=== PATIENT | female | born 1975 | race Caucasian/White ===

== ENCOUNTER 2019-04-01 14:11 | Inpatient (IN) | payer OTHER, MEDICAID ==
[~2019-04-01] VITALS: Ht 172.7 cm; Wt 99.8 kg
[2019-04-01 14:13] VITALS: BP 121/69
[2019-04-01 14:44] LABS: BILIRUBIN NEGATIVE (NEGATIVE); BLOOD NEGATIVE (NEGATIVE); CLARITY CLEAR (CLEAR); COLOR YELLOW (YELLOW); GLUCOSE NEGATIVE (NEGATIVE); KETONE NEGATIVE (NEGATIVE); LEUKO ESTERASE NEGATIVE (NEGATIVE); NITRITE NEGATIVE (NEGATIVE); PH 6.5 (5.0-9.0); SPECIFIC GRAVITY <= 1.005 (1.005-1.030); UROBILINOGEN 0.2 E.U./dl (0.2-1.0)
[2019-04-01 14:54] LABS: BACTERIA TRACE; EPITHELIAL CELLS 0-2
[2019-04-01 15:10] LABS: BASO % 0.2 % (0.0-1.0); EOS % 0.3 % (1.0-4.0); HEMATOCRIT 41.9 % (37.0-47.0); HEMOGLOBIN 13.1 g/dl (12.0-16.0); LYMPH # 2.9 10*3/uL (1.3-4.4); LYMPH % 24.6 % (27.0-41.0); MEAN CELL VOLUME 89.5 fl (81.0-99.0); MEAN CORPUSCULAR HGB CONC 31.3 g/dl (33.0-37.0); MEAN PLATELET VOLUME 11.8 fl (9.6-12.3); MONO # 0.6 10*3/uL (0.1-1.0); MONO % 5.1 % (3.0-9.0); NEUT # 8.3 10*3/uL (2.3-7.9); NEUT % 69.5 % (47.0-73.0); PLATELET COUNT AUTOMATED 301 10*3/uL (130-400); RED BLOOD COUNT 4.68 10*6/uL (4.10-5.10); RED CELL DISTRI WIDTH 14.4 % (0-14.5); WHITE BLOOD COUNT 11.9 10*3/uL (4.8-10.8)
[2019-04-01 15:13] LABS: ACT PARTIAL THROMBO TIME 29.5 SECONDS (20.0-32.1); INTERNATIONAL NORM RATIO 3.3 (2.0-3.5)
[2019-04-01 15:15] LABS: ALBUMIN 3.7 gm/dl (3.1-4.5); ALKALINE PHOSPHATASE 75 U/L (45-117); BUN 7 mg/dl (7-24); CHLORIDE 112 mmol/L (98-107); CREATININE 0.78 mg/dL (0.55-1.02); LIPASE 74 U/L (73-393); POTASSIUM 3.5 mmol/L (3.5-5.1); SGOT/AST 7 IU/L (3-35); SGPT/ALT 17 U/L (12-78); SODIUM 142 mmol/L (136-145)
--- NOTE | 2019-04-01 17:45 | NUR ---
Time: 1744 A 43 year old FEMALE admitted to under services of JORDYN LOPEZ DO, Pt. arrived via from ER. Chief complaint: EPIGASTRIC PAIN. SUMAN WATTS
--- NOTE | 2019-04-01 18:04 | NUR ---
PHYSICIAN WAS NOTIFIED OF DR. CESAR CONSULT. RESPONSE OF NOTIFICATION WAS OK THANK YOU. SUMAN WATTS
[2019-04-01] MEDS ORDERED: OMEPRAZOLE40 MG PO (18:10)
[2019-04-01] MEDS ORDERED: TRAZODONE100 MG PO (18:11)
[2019-04-01] MEDS ORDERED: TOPAMAX50 MG PO (18:11)
[2019-04-01] MEDS ORDERED: MELATONIN5 M6 PO (18:12)
[2019-04-01] MEDS ORDERED: VRAYLAR4.5 MG PO (18:12)
[2019-04-01] MEDS ORDERED: LIPITOR20 MG PO (18:13)
[2019-04-01] MEDS ORDERED: NEURONTIN300 MG PO (18:13)
[2019-04-01] MEDS ORDERED: B12,B-12,B 12500 MC1 PO (18:13)
[2019-04-01] MEDS ORDERED: MINIPRESS2 M1 PO (18:14)
[2019-04-01] MEDS ORDERED: PROAIR HFA8.5 GM INH (18:14)
[2019-04-01] MEDS ORDERED: COUMADIN5 M2 PO (18:15)
[2019-04-01] MEDS ORDERED: SINGULAIR10 M1 PO (18:15)
[2019-04-01] MEDS ORDERED: BUSPIRONE30 MG PO (18:15)
[2019-04-01] MEDS ORDERED: SYMB160 INH (18:16)
[2019-04-01] MEDS ORDERED: CYCLOBENZAPRINE10 MG PO (18:16)
[2019-04-01 20:00] VITALS: BP 121/62
--- NOTE | 2019-04-01 23:08 | NUR ---
24 HR chart check completed.
[2019-04-02] VITALS: BP 120/64
[2019-04-02 06:53] LABS: BASO % 0.4 % (0.0-1.0); EOS # 0.1 10*3/uL (0.0-0.4); EOS % 0.6 % (1.0-4.0); HEMATOCRIT 40.4 % (37.0-47.0); HEMOGLOBIN 12.6 g/dl (12.0-16.0); LYMPH # 3.6 10*3/uL (1.3-4.4); LYMPH % 34.4 % (27.0-41.0); MEAN CORPUSCULAR HGB 28.1 pg (27.0-31.0); MEAN CORPUSCULAR HGB CONC 31.2 g/dl (33.0-37.0); MEAN PLATELET VOLUME 11.8 fl (9.6-12.3); MONO # 0.6 10*3/uL (0.1-1.0); MONO % 5.9 % (3.0-9.0); NEUT # 6.1 10*3/uL (2.3-7.9); NEUT % 58.2 % (47.0-73.0); PLATELET COUNT AUTOMATED 281 10*3/uL (130-400); RED BLOOD COUNT 4.49 10*6/uL (4.10-5.10); RED CELL DISTRI WIDTH 14.5 % (0-14.5); WHITE BLOOD COUNT 10.5 10*3/uL (4.8-10.8)
--- NOTE | 2019-04-02 07:25 | NUR ---
DR CESAR HERE AND SAID PATIENT HAS A HX OF BARRETTS ESOPHAGUS & NEED TO CONSULT GI NOT SUGERY.
[2019-04-02 07:29] LABS: CHLORIDE 114 mmol/L (98-107); POTASSIUM 3.7 mmol/L (3.5-5.1); SODIUM 143 mmol/L (136-145)
--- NOTE | 2019-04-02 07:29 | NUR ---
Shift chart check completed.
[2019-04-02 07:31] LABS: INTERNATIONAL NORM RATIO 3.2 (2.0-3.5)
[2019-04-02 07:49] LABS: ALBUMIN 3.3 gm/dl (3.1-4.5); ALKALINE PHOSPHATASE 67 U/L (45-117); BUN 6 mg/dl (7-24); CHOLESTEROL 122 mg/dL (<200); CREATININE 0.69 mg/dL (0.55-1.02); FREE T4 0.95 ng/dl (0.76-1.46); HDL CHOLESTEROL 30 mg/dl (40-60); LDL CHOLESTEROL 56 mg/dL (9-159); PHOSPHOROUS 2.6 mg/dL (2.5-4.9); SGOT/AST 7 IU/L (3-35); SGPT/ALT 19 U/L (12-78); THYROID STIM HORMONE (HS) 0.483 uIU/ml (0.358-4.75); TOTAL PROTEIN 6.2 gm/dL (6.4-8.2); TRIGLYCERIDES 178 mg/dl (<150); VLDL CHOLESTEROL 36 mg/dL (6-40)
[2019-04-02 08:00] VITALS: BP 108/60
--- NOTE | 2019-04-02 08:18 | NUR ---
DR BAIRD CALLED ABOUT WHAT DR CESAR SAID
[2019-04-02 08:22] LABS: VITAMIN D, 25-HYDROXY 39.8 ng/mL (30-100)
--- NOTE | 2019-04-02 09:03 | NUR ---
DR DHILLON CALLED ABOUT CONSULT
--- NOTE | 2019-04-02 10:16 | NUR ---
DR SLAUGHTER ROUNDED & SPOKE WITH THE PATIENT
[2019-04-02 12:00] VITALS: BP 117/61
--- NOTE | 2019-04-02 12:02 | NUR ---
Manager Wound in to talk to patient. Patient states lives at HOME with SISTER. There are NO steps in the home. Physician: GEOFF Pharmacy: [facility] Home health services: NONE Patient's level of ADLs: INDEPENDENT Patient has working utilities: YES DME: NONE Follow-up physician's appointment after d/c: WILL BE MADE BY HOSPITALIST NURSE DIRECTOR ON DISCHARGE Does patient want to access PORTAL?: NO Discharge plan PT LIVES AT HOME WITH HER SISTER AND IS INDEPENDENT IN HER CARE. STATES SHE WILL RETURN HOME WITH SISTER ON DISCHARGE. DENIES SHE WILL HAVE ANY NEEDS AT HOME ON DISCHARGE. WILL HAVE A RIDE HOME. WILL CONTINUE TO FOLLOW.. REBECCA GARCIA
--- NOTE | 2019-04-02 15:41 | NUR ---
Nutritional Support Services: Pt was triggered for loss of appetite >3 days. Her current diet order is clear liquids. No intervention needed until diet advances.
[2019-04-02 16:00] VITALS: BP 122/72
--- NOTE | 2019-04-02 17:49 | NUR ---
DR DHILLON LEFT HIS PHONE AT THE OFFICE - THEY ARE TAKING IT TO HIM AT [facility] & WILL REMIND HIM OF CONSULT
[2019-04-02 20:00] VITALS: BP 111/61
[2019-04-03] VITALS: BP 90/58
--- NOTE | 2019-04-03 03:24 | NUR ---
24 HR chart check completed.
[2019-04-03 07:10] LABS: BASO # 0.1 10*3/uL (0.0-0.1); BASO % 0.6 % (0.0-1.0); EOS # 0.1 10*3/uL (0.0-0.4); EOS % 0.9 % (1.0-4.0); HEMOGLOBIN 12.8 g/dl (12.0-16.0); LYMPH # 3.2 10*3/uL (1.3-4.4); LYMPH % 32.5 % (27.0-41.0); MEAN CELL VOLUME 89.5 fl (81.0-99.0); MEAN CORPUSCULAR HGB 27.9 pg (27.0-31.0); MEAN CORPUSCULAR HGB CONC 31.2 g/dl (33.0-37.0); MEAN PLATELET VOLUME 11.8 fl (9.6-12.3); MONO # 0.7 10*3/uL (0.1-1.0); MONO % 6.8 % (3.0-9.0); NEUT # 5.8 10*3/uL (2.3-7.9); NEUT % 58.8 % (47.0-73.0); PLATELET COUNT AUTOMATED 278 10*3/uL (130-400); RED BLOOD COUNT 4.58 10*6/uL (4.10-5.10); RED CELL DISTRI WIDTH 14.4 % (0-14.5); WHITE BLOOD COUNT 9.8 10*3/uL (4.8-10.8)
[2019-04-03 07:20] LABS: BUN 3 mg/dl (7-24); CHLORIDE 115 mmol/L (98-107); POTASSIUM 3.6 mmol/L (3.5-5.1); SODIUM 143 mmol/L (136-145)
[2019-04-03 07:22] LABS: CREATININE 0.73 mg/dL (0.55-1.02)
[2019-04-03 07:44] LABS: ACT PARTIAL THROMBO TIME 28.2 SECONDS (20.0-32.1); INTERNATIONAL NORM RATIO 2.1 (2.0-3.5)
[2019-04-03 08:00] VITALS: BP 107/53
[2019-04-03 12:00] VITALS: BP 123/68
--- NOTE | 2019-04-03 12:53 | NUR ---
PT WILL RETURN HOME ON DISCHARGE WITH NO NEEDS. WILL CONTINUE TO FOLLOW.
[2019-04-03] MEDS ORDERED: XARE20MG PO (14:43)
[2019-04-03 16:00] VITALS: BP 131/69
--- NOTE | 2019-04-03 16:54 | NUR ---
Discharge instructions reviewed with patient/family. Patient receptive and verbalizes understanding. Follow-up care arranged. Written instructions given to patient/family. DERRICK VILA
== END 2019-04-03 16:54 | disposition home or self-care (01) | DRG 392 ==
LOC: ED 14:11 → 5E 16:02 → EDHOLD 16:02 → 5E 16:50
PROVIDERS: Emergency Medicine; Internal Medicine; Registered Nurse; ADMIT Internal Medicine
DX: R10.13 Epigastric pain (principal); D68.59 Other primary thrombophilia; E44.0 Moderate protein-calorie malnutrition; K22.719 Barrett's esophagus with dysplasia, unspecified; I34.1 Nonrheumatic mitral (valve) prolapse; K21.9 Gastro-esophageal reflux disease without esophagitis; F31.9 Bipolar disorder, unspecified; R13.10 Dysphagia, unspecified; E78.00 Pure hypercholesterolemia, unspecified; Z87.891 Personal history of nicotine dependence; Z79.01 Long term (current) use of anticoagulants; Z86.711 Personal history of pulmonary embolism; Z86.718 Personal history of other venous thrombosis and embolism; Z90.49 Acquired absence of other specified parts of digestive tract; Z98.51 Tubal ligation status; Z80.8 Family history of malignant neoplasm of other organs or systems; Z82.49 Family history of ischemic heart disease and other diseases of the circulatory system; Z88.1 Allergy status to other antibiotic agents; Z71.6 Tobacco abuse counseling; Z79.899 Other long term (current) drug therapy; Z68.33 Body mass index [BMI] 33.0-33.9, adult

== ENCOUNTER 2019-05-12 18:01 | Emergency (ER) | payer OTHER, MEDICAID ==
[~2019-05-12] VITALS: Ht 172.7 cm; Wt 98.4 kg
--- NOTE | ~2019-05-12 | EKG ---
[place], [place] ELECTROCARDIOGRAM REPORT NAME: THANH SILVER UNIT #: [id number] ROOM: DOCTOR: EPIPHANY DRAFT REPORT BIRTHDATE: [birth year] [facility] Test Date: 2019-05-12 Test Time: 19:45:19 Pat Name: THANH SILVER Department: Room: Gender: F Plant Equipment Engineer: SS RESP : 1975 Requested By: OLIVIA ARREGUIN Order Number: [id number] Reading MD: Kana Adams MD Measurements Intervals [place] Rate: 52 P: 65 TN: 175 QRS: -24 QRSD: 99 T: 40 QT: 503 QTc: 468 Interpretive Statements Sinus rhythm Probable left atrial enlargement Borderline left axis deviation RSR' in V1 or V2, right VCD or RVH Baseline wander in lead(s) I Electronically Signed On 05-14-2019 12:46:50 PDT by Kana Adams MD CM:EKGRPT:ELECTROCARDIOGRAM REPORT [id number] OLIVIA ARREGUIN EPIPHANY DRAFT REPORT OLIVIA ARREGUIN
[~2019-05-12 18:01] MED LIST: B12,B-12,B 12500 MC1 PO; BUSPIRONE30 MG PO; COUMADIN5 M2 PO; CYCLOBENZAPRINE10 MG PO; LIPITOR20 MG PO; MELATONIN5 M6 PO; MINIPRESS2 M1 PO; NEURONTIN300 MG PO; OMEPRAZOLE40 MG PO; PROAIR HFA8.5 GM INH; SINGULAIR10 M1 PO; SYMB160 INH; TOPAMAX50 MG PO; TRAZODONE100 MG PO; VRAYLAR4.5 MG PO; XARE20MG PO
[2019-05-12 19:29] LABS: BASO # 0.1 10*3/uL (0.0-0.1); BASO % 0.5 % (0.0-1.0); EOS # 0.2 10*3/uL (0.0-0.4); EOS % 1.5 % (1.0-4.0); HEMATOCRIT 42.5 % (37.0-47.0); HEMOGLOBIN 13.2 g/dl (12.0-16.0); LYMPH # 3.6 10*3/uL (1.3-4.4); LYMPH % 31.1 % (27.0-41.0); MEAN CELL VOLUME 89.9 fl (81.0-99.0); MEAN CORPUSCULAR HGB 27.9 pg (27.0-31.0); MEAN CORPUSCULAR HGB CONC 31.1 g/dl (33.0-37.0); MEAN PLATELET VOLUME 11.6 fl (9.6-12.3); MONO # 0.7 10*3/uL (0.1-1.0); MONO % 6.2 % (3.0-9.0); NEUT # 6.9 10*3/uL (2.3-7.9); NEUT % 60.4 % (47.0-73.0); PLATELET COUNT AUTOMATED 288 10*3/uL (130-400); RED BLOOD COUNT 4.73 10*6/uL (4.10-5.10); RED CELL DISTRI WIDTH 14.4 % (0-14.5); WHITE BLOOD COUNT 11.5 10*3/uL (4.8-10.8)
[2019-05-12 19:56] LABS: BUN 4 mg/dl (7-24); CHLORIDE 113 mmol/L (98-107); CREATININE 0.77 mg/dL (0.55-1.02); LIPASE 88 U/L (73-393); POTASSIUM 3.3 mmol/L (3.5-5.1); SODIUM 142 mmol/L (136-145)
== END 2019-05-12 21:00 | disposition home or self-care (01) ==
LOC: ED 18:01
PROVIDERS: Nurse Practitioner Family
DX: K44.9 Diaphragmatic hernia without obstruction or gangrene (principal); E78.00 Pure hypercholesterolemia, unspecified; K21.9 Gastro-esophageal reflux disease without esophagitis; J45.909 Unspecified asthma, uncomplicated; F17.200 Nicotine dependence, unspecified, uncomplicated; Z88.1 Allergy status to other antibiotic agents; Z79.899 Other long term (current) drug therapy; Z86.718 Personal history of other venous thrombosis and embolism

== ENCOUNTER 2019-07-07 11:34 | Emergency (ER) | payer OTHER, MEDICAID ==
[~2019-07-07] VITALS: Ht 175.2 cm; Wt 95.3 kg
[2019-07-07 12:15] LABS: ACT PARTIAL THROMBO TIME 27.7 SECONDS (20.0-32.1); INTERNATIONAL NORM RATIO 1.1 (2.0-3.5)
[2019-07-07 12:16] LABS: BASO # 0.1 10*3/uL (0.0-0.1); BASO % 0.6 % (0.0-1.0); EOS # 0.3 10*3/uL (0.0-0.4); HEMATOCRIT 38.1 % (37.0-47.0); LYMPH # 1.9 10*3/uL (1.3-4.4); LYMPH % 21.9 % (27.0-41.0); MEAN CELL VOLUME 90.3 fl (81.0-99.0); MEAN CORPUSCULAR HGB 28.4 pg (27.0-31.0); MEAN CORPUSCULAR HGB CONC 31.5 g/dl (33.0-37.0); MONO # 0.6 10*3/uL (0.1-1.0); NEUT # 5.9 10*3/uL (2.3-7.9); PLATELET COUNT AUTOMATED 281 10*3/uL (130-400); RED BLOOD COUNT 4.22 10*6/uL (4.10-5.10); WHITE BLOOD COUNT 8.8 10*3/uL (4.8-10.8)
[2019-07-07 12:27] LABS: ALBUMIN 3.1 gm/dl (3.1-4.5); ALKALINE PHOSPHATASE 75 U/L (45-117); BUN 5 mg/dl (7-24); CHLORIDE 113 mmol/L (98-107); CREATININE 0.71 mg/dL (0.55-1.02); POTASSIUM 4.1 mmol/L (3.5-5.1); SGOT/AST 13 IU/L (3-35); SGPT/ALT 18 U/L (12-78); SODIUM 141 mmol/L (136-145); TOTAL PROTEIN 6.1 gm/dL (6.4-8.2)
[2019-07-07 12:36] LABS: TROPONIN I < 0.015 ng/ml (<0.045)
[2019-07-07 12:43] LABS: BILIRUBIN NEGATIVE (NEGATIVE); BLOOD NEGATIVE (NEGATIVE); CLARITY CLEAR (CLEAR); COLOR YELLOW (YELLOW); GLUCOSE NEGATIVE (NEGATIVE); KETONE NEGATIVE (NEGATIVE); LEUKO ESTERASE NEGATIVE (NEGATIVE); NITRITE NEGATIVE (NEGATIVE); SPECIFIC GRAVITY <= 1.005 (1.005-1.030); UROBILINOGEN 0.2 E.U./dl (0.2-1.0)
[2019-07-07 13:07] LABS: EPITHELIAL CELLS 0-2; WBC 0-2 wbc/hpf (0-5)
== END 2019-07-07 14:58 | disposition home or self-care (01) ==
LOC: ED 11:34
PROVIDERS: Emergency Medicine
DX: G89.18 Other acute postprocedural pain (principal); M54.6 Pain in thoracic spine; R10.13 Epigastric pain; R10.12 Left upper quadrant pain; R06.02 Shortness of breath; K21.9 Gastro-esophageal reflux disease without esophagitis; J45.909 Unspecified asthma, uncomplicated; F17.200 Nicotine dependence, unspecified, uncomplicated; Z88.1 Allergy status to other antibiotic agents; Z79.899 Other long term (current) drug therapy

== ENCOUNTER 2019-12-29 15:06 | Emergency (ER) | payer OTHER, MEDICAID ==
[~2019-12-29] VITALS: Ht 172.7 cm; Wt 95.3 kg
[2019-12-29] MEDS ORDERED: IMITREX50 MG PO (16:57)
== END 2019-12-29 17:15 | disposition home or self-care (01) ==
LOC: ED 15:06
DX: G43.909 Migraine, unspecified, not intractable, without status migrainosus (principal); J45.909 Unspecified asthma, uncomplicated; K21.9 Gastro-esophageal reflux disease without esophagitis; Z88.8 Allergy status to other drugs, medicaments and biological substances; Z79.899 Other long term (current) drug therapy; Z90.49 Acquired absence of other specified parts of digestive tract

== ENCOUNTER 2020-01-24 12:43 | Emergency (ER) | payer OTHER, MEDICAID ==
[~2020-01-24] VITALS: Ht 172.7 cm; Wt 97.5 kg
[~2020-01-24 12:43] MED LIST changes: +IMITREX50 MG PO
[2020-01-24 13:32] LABS: BASO # 0.1 10*3/uL (0.0-0.1); BASO % 0.5 % (0.0-1.0); EOS # 0.3 10*3/uL (0.0-0.4); EOS % 2.4 % (1.0-4.0); HEMATOCRIT 42.4 % (37.0-47.0); LYMPH # 1.7 10*3/uL (1.3-4.4); MEAN CORPUSCULAR HGB 28.4 pg (27.0-31.0); MEAN CORPUSCULAR HGB CONC 32.3 g/dl (33.0-37.0); MEAN PLATELET VOLUME 10.6 fl (9.6-12.3); MONO # 0.6 10*3/uL (0.1-1.0); MONO % 4.6 % (3.0-9.0); NEUT # 10.6 10*3/uL (2.3-7.9); NEUT % 79.1 % (47.0-73.0); PLATELET COUNT AUTOMATED 336 10*3/uL (130-400); RED BLOOD COUNT 4.82 10*6/uL (4.10-5.10); WHITE BLOOD COUNT 13.3 10*3/uL (4.8-10.8)
[2020-01-24 13:43] LABS: ACT PARTIAL THROMBO TIME 26.5 SECONDS (20.0-32.1)
[2020-01-24 13:48] LABS: ALBUMIN 3.6 gm/dl (3.1-4.5); ALKALINE PHOSPHATASE 102 U/L (45-117); BUN 7 mg/dl (7-24); CHLORIDE 108 mmol/L (98-107); CREATININE 0.81 mg/dL (0.55-1.02); POTASSIUM 3.9 mmol/L (3.5-5.1); SGOT/AST 19 IU/L (3-35); SGPT/ALT 33 U/L (12-78); SODIUM 136 mmol/L (136-145)
== END 2020-01-24 14:01 | disposition home or self-care (01) ==
LOC: ED 12:43
PROVIDERS: Emergency Medicine
DX: K62.5 Hemorrhage of anus and rectum (principal); R10.32 Left lower quadrant pain; E78.00 Pure hypercholesterolemia, unspecified; G43.909 Migraine, unspecified, not intractable, without status migrainosus; J45.909 Unspecified asthma, uncomplicated; Z72.0 Tobacco use; Z79.899 Other long term (current) drug therapy; Z88.1 Allergy status to other antibiotic agents

== ENCOUNTER 2020-03-01 13:50 | Emergency (ER) | payer OTHER, MEDICAID ==
[~2020-03-01] VITALS: Ht 172.7 cm; Wt 96.2 kg
== END 2020-03-01 16:37 | disposition home or self-care (01) ==
LOC: ED 13:50
DX: S86.911A Strain of unspecified muscle(s) and tendon(s) at lower leg level, right leg, initial encounter (principal); G43.909 Migraine, unspecified, not intractable, without status migrainosus; F31.9 Bipolar disorder, unspecified; E78.00 Pure hypercholesterolemia, unspecified; J45.909 Unspecified asthma, uncomplicated; K21.9 Gastro-esophageal reflux disease without esophagitis; F17.200 Nicotine dependence, unspecified, uncomplicated; W10.9XXA Fall (on) (from) unspecified stairs and steps, initial encounter; Y93.89 Activity, other specified; Y92.89 Other specified places as the place of occurrence of the external cause; Y99.8 Other external cause status

== ENCOUNTER 2020-03-10 13:42 | Inpatient (IN) | payer OTHER, MEDICAID ==
[~2020-03-10] VITALS: Ht 172.7 cm; Wt 96.8 kg
[2020-03-10 13:48] VITALS: BP 132/69
[2020-03-10 14:42] LABS: BASO # 0.1 10*3/uL (0.0-0.1); BASO % 0.4 % (0.0-1.0); EOS # 0.2 10*3/uL (0.0-0.4); EOS % 1.3 % (1.0-4.0); LYMPH # 1.8 10*3/uL (1.3-4.4); LYMPH % 12.2 % (27.0-41.0); MEAN CELL VOLUME 88.5 fl (81.0-99.0); MEAN CORPUSCULAR HGB 28.5 pg (27.0-31.0); MEAN CORPUSCULAR HGB CONC 32.3 g/dl (33.0-37.0); MEAN PLATELET VOLUME 10.3 fl (9.6-12.3); MONO % 6.9 % (3.0-9.0); NEUT # 11.5 10*3/uL (2.3-7.9); NEUT % 78.8 % (47.0-73.0); PLATELET COUNT AUTOMATED 285 10*3/uL (130-400); RED BLOOD COUNT 4.52 10*6/uL (4.10-5.10); RED CELL DISTRI WIDTH 13.5 % (0-14.5); WHITE BLOOD COUNT 14.6 10*3/uL (4.8-10.8)
[2020-03-10 14:54] LABS: ACT PARTIAL THROMBO TIME 28.4 SECONDS (20.0-32.1); INTERNATIONAL NORM RATIO 1.1 (2.0-3.5)
[2020-03-10 14:57] LABS: ALBUMIN 3.2 gm/dl (3.1-4.5); ALKALINE PHOSPHATASE 96 U/L (45-117); BUN 7 mg/dl (7-24); CHLORIDE 107 mmol/L (98-107); CREATININE 0.69 mg/dL (0.55-1.02); LIPASE 53 U/L (73-393); POTASSIUM 3.8 mmol/L (3.5-5.1); SGOT/AST 9 IU/L (3-35); SGPT/ALT 24 U/L (12-78); SODIUM 136 mmol/L (136-145); TOTAL PROTEIN 6.8 gm/dL (6.4-8.2)
[2020-03-10 14:58] LABS: TROPONIN I < 0.015 ng/ml (<0.045)
[2020-03-10 16:00] VITALS: BP 109/43
[2020-03-10 19:50] VITALS: BP 109/43
--- NOTE | 2020-03-10 19:50 | NUR ---
A 44, admitted to , under the services of JORDYN Lopez DO with a diagnosis of GI BLEED, ACUTE COLITIS. Chief complaint is N/V. Patient arrived via ambulatory from ER. Monitor applied. Initial assessment completed. Vital signs taken and recorded. JORDYN LOPEZ DO notified of admission to the unit. Orders received. See assessment for past medical history, medications and allergies. Patient and/or family oriented to unit. [facility] visitation policy reviewed. Clothing/patient valuable form completed. ISIDRA FINNEY
[2020-03-10 20:00] VITALS: BP 100/41
--- NOTE | 2020-03-10 20:24 | NUR ---
PT C/O LUQ SHARP STABBING CONSTANT ABD PAIN AND NAUSEA. MEDICATED W/IVP MORPHINE AND IVP ZOFRAN.
--- NOTE | 2020-03-10 20:49 | NUR ---
DR. FISHMAN NOTIFIED OF NEW CONSULT FOR GI BLEED.
--- NOTE | 2020-03-10 21:00 | NUR ---
PT STATES MORPHINE HAS HELPED DECREASE THE PAIN BY HALF AND ZOFRAN ALLEVIATED HER NAUSEA.
[2020-03-10] MEDS ORDERED: SEROQUEL XR300 MG PO (21:25)
[2020-03-10] MEDS ORDERED: TRILEPTAL600 MG PO (21:25)
[2020-03-10] MEDS ORDERED: VISTARIL50 MG PO (21:26)
[2020-03-10] MEDS ORDERED: REQUIP2 MG PO (21:27)
--- NOTE | 2020-03-10 21:28 | NUR ---
RESIDENT NOTIFIED OF MED REC UTD.
[2020-03-11] VITALS: BP 101/49
--- NOTE | 2020-03-11 00:44 | NUR ---
PT C/O LUQ ABD PAIN 01/28. MEDICATED W/MORPHINE IVP.
[2020-03-11 06:42] LABS: BASO % 0.4 % (0.0-1.0); EOS # 0.2 10*3/uL (0.0-0.4); EOS % 2.1 % (1.0-4.0); HEMATOCRIT 36.9 % (37.0-47.0); LYMPH # 2.4 10*3/uL (1.3-4.4); LYMPH % 21.7 % (27.0-41.0); MEAN CELL VOLUME 90.2 fl (81.0-99.0); MEAN CORPUSCULAR HGB 28.4 pg (27.0-31.0); MEAN CORPUSCULAR HGB CONC 31.4 g/dl (33.0-37.0); MEAN PLATELET VOLUME 10.8 fl (9.6-12.3); MONO # 0.8 10*3/uL (0.1-1.0); MONO % 6.9 % (3.0-9.0); NEUT # 7.5 10*3/uL (2.3-7.9); NEUT % 68.4 % (47.0-73.0); PLATELET COUNT AUTOMATED 252 10*3/uL (130-400); RED BLOOD COUNT 4.09 10*6/uL (4.10-5.10); RED CELL DISTRI WIDTH 13.5 % (0-14.5)
[2020-03-11 06:52] LABS: BUN 5 mg/dl (7-24); CHLORIDE 107 mmol/L (98-107); CREATININE 0.62 mg/dL (0.55-1.02); POTASSIUM 3.4 mmol/L (3.5-5.1); SODIUM 138 mmol/L (136-145)
--- NOTE | 2020-03-11 07:00 | NUR ---
ARRIVED ON SHIFT, RECEIVED REPORT FROM OFFGOING NURSE, ASSUMED CARE OF PATIENT.
--- NOTE | 2020-03-11 07:30 | NUR ---
INTRODUCED SELF TO PATIENT, BED IN LOW POSITION, WHEEL LOCKS ENGAGED, SIDE RAILS UP X 2 FOR TURNING AND REPOSITIONING, CALL LIGHT WITHIN REACH, NO NEEDS VOICED AT THIS TIME, WHITE BOARD UPDATED.
[2020-03-11 08:00] VITALS: BP 118/82
--- NOTE | 2020-03-11 08:06 | NUR ---
PATIENT C/O OF LEFT LOWER QUADRANT, ABDOMINAL PAIN RATES PAIN 5/10, DESCRIBES ACHING, CONSTANT, SHARP PAIN, MEDICATED WITH NORCO ORDERED PRN, WHITE BOARD UPDATED.
--- NOTE | 2020-03-11 09:05 | NUR ---
NORCO EFFECTIVE, EVIDENCED BY PATIENT RESTING QUIETLY WITH EYES CLOSED, NO DISTRESS NOTED.
--- NOTE | 2020-03-11 10:30 | NUR ---
Information Lead in to talk to patient. Patient states lives at home with family. There are no steps in the home. Physician: mable carey [facility]acy: [facility] Home health services: none Patient's level of ADLs: INDEPENDENT Patient has working utilities: all working DME: none Follow-up physician's appointment after d/c: will be made by hospitalist nurse director upon discharge Does patient want to access PORTAL?: no Discharge plan discussed with patient, she states she lives at home with family is independent in adls and ambulation, she states she will return home when discharged and denies any home needs, case management will follow. COLLEEN GARZON
[2020-03-11 12:00] VITALS: BP 118/80
--- NOTE | 2020-03-11 14:48 | NUR ---
Nutritional Support Services Note: Dx of acute colitis, GI bleed, sepsis, hx of anxiety and depression. Appetite is poor for meals, currently on a full liquid diet. Ht.5'8 Wt.213#. Will continue to follow for advancement of po intake. Aiyana Cox Rdn Ld
--- NOTE | 2020-03-11 15:00 | NUR ---
PATIENT C/O ABD PAIN AND HEAD ACHE MEDICATED WITH VINNY GONZALEZ BOARD UPDATED.
[2020-03-11 16:00] VITALS: BP 100/54
--- NOTE | 2020-03-11 18:44 | NUR ---
Shift chart check completed.
[2020-03-11 20:00] VITALS: BP 112/53
--- NOTE | 2020-03-11 20:03 | NUR ---
PT WANTING TO GO HOME. DR. CORADO NOTIFIED OF PT'S REQUEST. WILL REVIEW CHART AND CALL BACK.
--- NOTE | 2020-03-11 20:32 | NUR ---
DR. DAVILA ON FLOOR AND SPOKE W/PT RE BEING D/C'D FROILAN. PT AGREED TO STAY THE NIGHT.
[2020-03-11] MEDS ORDERED: VENLAFAXINE HY150 M2 PO (20:34)
--- NOTE | 2020-03-11 20:37 | NUR ---
DR. BURNS NOTIFIED PT STATES SHE TAKES EFFEXOR 150MG PO DAILY AND SHE HASN'T HAD IT FOR [address] BEAR CONTINUE.
--- NOTE | 2020-03-11 23:26 | NUR ---
PT STATES HER ANXIETY IS GONE BUT SHE CONTINUES TO HAVE PAIN IN HER LUQ ABD AND IT IS WORSE. MEDICATED W/MORPHINE IVP. CALL LIGHT IN REACH.
[2020-03-11 23:50] VITALS: BP 100/41
--- NOTE | 2020-03-12 00:26 | NUR ---
PT RESTING QUIETLY IN BED. DENIES ANY FURTHER C/O PAIN. EXTRA PILLOWS AND BLANKETS AND GINGERALE GIVEN TO PT PER REQUEST. CALL LIGHT IN REACH.
--- NOTE | 2020-03-12 02:00 | NUR ---
PT RESTING QUIETLY IN BED. NO S/S OF DISTRESS NOTED. CALL LIGHT IN REACH.
[2020-03-12 06:08] LABS: BASO # 0.1 10*3/uL (0.0-0.1); BASO % 0.5 % (0.0-1.0); EOS # 0.3 10*3/uL (0.0-0.4); EOS % 2.4 % (1.0-4.0); HEMATOCRIT 38.9 % (37.0-47.0); LYMPH # 1.8 10*3/uL (1.3-4.4); LYMPH % 17.5 % (27.0-41.0); MEAN CELL VOLUME 90.3 fl (81.0-99.0); MEAN CORPUSCULAR HGB 28.8 pg (27.0-31.0); MEAN CORPUSCULAR HGB CONC 31.9 g/dl (33.0-37.0); MONO # 0.7 10*3/uL (0.1-1.0); MONO % 6.3 % (3.0-9.0); NEUT # 7.6 10*3/uL (2.3-7.9); NEUT % 72.9 % (47.0-73.0); PLATELET COUNT AUTOMATED 253 10*3/uL (130-400); RED BLOOD COUNT 4.31 10*6/uL (4.10-5.10); RED CELL DISTRI WIDTH 13.5 % (0-14.5); WHITE BLOOD COUNT 10.4 10*3/uL (4.8-10.8)
[2020-03-12 06:22] LABS: BUN 2 mg/dl (7-24); CHLORIDE 110 mmol/L (98-107); CREATININE 0.58 mg/dL (0.55-1.02); POTASSIUM 3.7 mmol/L (3.5-5.1); SODIUM 140 mmol/L (136-145)
--- NOTE | 2020-03-12 07:00 | NUR ---
ARRIVED ON SHIFT, REPORT RECEIVED FROM OFFGOING NURSE, ASSUMED CARE OF PATIENT.
--- NOTE | 2020-03-12 07:53 | NUR ---
Shift chart check completed.
[2020-03-12 08:00] VITALS: BP 90/58; BP 97/42
--- NOTE | 2020-03-12 08:13 | NUR ---
INTRODUCED SELF TO PATIENT, BED IN LOW POSITION, WHEEL LOCKS ENGAGED, SIDE RAILS UP X 2 FOR TURNING AND REPOSITIONING, CALL LIGHT WITHIN REACH NO NEEDS VOICED AT THIS TIME.
--- NOTE | 2020-03-12 08:19 | NUR ---
DR GRIFFITHS NOTIFIED OF LOW BP, ADVISED TO RECHECK IN 1-1/2 HOURS AND LET HIM KNOW
[2020-03-12 09:30] VITALS: BP 90/62
--- NOTE | 2020-03-12 09:57 | NUR ---
NOTIFIED DR. KWAN OF BP 90/62.
[2020-03-12] MEDS ORDERED: FLAGYL500 MG PO (11:14)
[2020-03-12] MEDS ORDERED: CIPRO500 MG PO (11:14)
[2020-03-12] MEDS ORDERED: DELZICOL400 M2 PO (11:14)
[2020-03-12 12:00] VITALS: BP 97/50
--- NOTE | 2020-03-12 12:19 | NUR ---
Discharge instructions reviewed with patient/family. Patient receptive and verbalizes understanding. Follow-up care arranged. Written instructions given to patient/family, Non-Monitored, IV removed, refused w/c for discharge. ANABELLE KATZ
--- NOTE | 2020-03-16 11:33 | NUR ---
Cherise from [facility] called and stated this is the 2nd request for clinicals. Please fax clinicals to [phone]. Clinicals faxed.
== END 2020-03-12 12:35 | disposition home or self-care (01) | DRG 872 ==
LOC: ED 13:42 → 4E 16:05 → EDHOLD 16:05 → 4E 19:03
PROVIDERS: Emergency Medicine; Internal Medicine; ADMIT Internal Medicine
DX: A41.9 Sepsis, unspecified organism (principal); K92.2 Gastrointestinal hemorrhage, unspecified; F31.81 Bipolar II disorder; K52.9 Noninfective gastroenteritis and colitis, unspecified; F17.210 Nicotine dependence, cigarettes, uncomplicated; F41.9 Anxiety disorder, unspecified; J45.909 Unspecified asthma, uncomplicated; E78.00 Pure hypercholesterolemia, unspecified; F43.10 Post-traumatic stress disorder, unspecified; G43.909 Migraine, unspecified, not intractable, without status migrainosus; Z98.51 Tubal ligation status; Z82.49 Family history of ischemic heart disease and other diseases of the circulatory system; Z88.1 Allergy status to other antibiotic agents; Z91.041 Radiographic dye allergy status; Z91.048 Other nonmedicinal substance allergy status; Z86.711 Personal history of pulmonary embolism; Z79.01 Long term (current) use of anticoagulants

== ENCOUNTER 2020-04-06 14:15 | Emergency (ER) | payer OTHER, MEDICAID ==
[~2020-04-06] VITALS: Ht 172.7 cm; Wt 90.7 kg
[~2020-04-06 14:15] MED LIST changes: +CIPRO500 MG PO; +DELZICOL400 M2 PO; +FLAGYL500 MG PO; +REQUIP2 MG PO; +SEROQUEL XR300 MG PO; +TRILEPTAL600 MG PO; +VENLAFAXINE HY150 M2 PO; +VISTARIL50 MG PO
[2020-04-06 15:01] LABS: BASO # 0.1 10*3/uL (0.0-0.1); BASO % 0.6 % (0.0-1.0); EOS # 0.2 10*3/uL (0.0-0.4); EOS % 2.9 % (1.0-4.0); HEMATOCRIT 41.9 % (37.0-47.0); LYMPH # 2.1 10*3/uL (1.3-4.4); LYMPH % 25.2 % (27.0-41.0); MEAN CELL VOLUME 89.1 fl (81.0-99.0); MEAN CORPUSCULAR HGB 28.5 pg (27.0-31.0); MEAN PLATELET VOLUME 10.4 fl (9.6-12.3); MONO # 0.6 10*3/uL (0.1-1.0); MONO % 7.6 % (3.0-9.0); NEUT # 5.3 10*3/uL (2.3-7.9); NEUT % 63.5 % (47.0-73.0); PLATELET COUNT AUTOMATED 337 10*3/uL (130-400); RED CELL DISTRI WIDTH 13.3 % (0-14.5); WHITE BLOOD COUNT 8.3 10*3/uL (4.8-10.8)
[2020-04-06 15:20] LABS: ALBUMIN 3.5 gm/dl (3.1-4.5); ALKALINE PHOSPHATASE 78 U/L (45-117); BUN 5 mg/dl (7-24); CHLORIDE 107 mmol/L (98-107); CREATININE 0.63 mg/dL (0.55-1.02); POTASSIUM 3.8 mmol/L (3.5-5.1); SGOT/AST 21 IU/L (3-35); SGPT/ALT 39 U/L (12-78); SODIUM 139 mmol/L (136-145); TOTAL PROTEIN 6.6 gm/dL (6.4-8.2)
[2020-04-06 15:32] LABS: ACETAMINOPHEN (TYLENOL) < 5.0 ug/ml (10-30); ETHYL ALCOHOL < 3.0 mg/dl (<3)
[2020-04-06 18:07] LABS: BILIRUBIN NEGATIVE; BLOOD NEGATIVE (NEGATIVE); CLARITY CLEAR (CLEAR); COLOR YELLOW (YELLOW); GLUCOSE NEGATIVE; KETONE NEGATIVE; LEUKO ESTERASE NEGATIVE (NEGATIVE); NITRITE NEGATIVE (NEGATIVE)
[2020-04-06 18:09] LABS: URINE AMPHETAMINES < 1000 (1000ng/ml); URINE BARBITURATES < 200 (200ng/ml); URINE BENZODIAZEPINES < 200 (200ng/ml); URINE CANNABINOIDS (THC) < 50 (50ng/ml); URINE COCAINE < 300 (300ng/ml); URINE METHADONE < 300 (300ng/ml); URINE OPIATES < 300 (300ng/ml); URINE PHENCYCLIDINE < 25 (25ng/ml)
[2020-04-06 18:14] LABS: BACTERIA TRACE; MUCOUS TRACE; RBC 0-2 rbc/hpf (0-2)
== END 2020-04-07 09:06 | disposition home or self-care (01) ==
LOC: ED 14:15
PROVIDERS: Nurse Practitioner Family
DX: F32.9 Major depressive disorder, single episode, unspecified (principal); G43.909 Migraine, unspecified, not intractable, without status migrainosus; Z88.8 Allergy status to other drugs, medicaments and biological substances; Z91.041 Radiographic dye allergy status; Z79.899 Other long term (current) drug therapy; Z90.49 Acquired absence of other specified parts of digestive tract

== ENCOUNTER 2020-09-14 19:28 | Emergency (ER) | payer OTHER, MEDICAID ==
[~2020-09-14] VITALS: Ht 175.2 cm; Wt 88.5 kg
[2020-09-14 20:39] LABS: BASO # 0.1 10*3/uL (0.0-0.1); BASO % 0.8 % (0.0-1.0); EOS # 0.2 10*3/uL (0.0-0.4); EOS % 2.1 % (1.0-4.0); LYMPH # 2.9 10*3/uL (1.3-4.4); LYMPH % 30.2 % (27.0-41.0); MEAN CELL VOLUME 91.3 fl (81.0-99.0); MEAN CORPUSCULAR HGB 29.5 pg (27.0-31.0); MEAN CORPUSCULAR HGB CONC 32.3 g/dl (33.0-37.0); MEAN PLATELET VOLUME 10.3 fl (9.6-12.3); MONO # 0.8 10*3/uL (0.1-1.0); MONO % 8.5 % (3.0-9.0); NEUT # 5.6 10*3/uL (2.3-7.9); NEUT % 58.1 % (47.0-73.0); PLATELET COUNT AUTOMATED 299 10*3/uL (130-400); RED BLOOD COUNT 4.27 10*6/uL (4.10-5.10); RED CELL DISTRI WIDTH 14.2 % (0-14.5); WHITE BLOOD COUNT 9.7 10*3/uL (4.8-10.8)
[2020-09-14 21:13] LABS: ALBUMIN 3.7 gm/dl (3.1-4.5); ALKALINE PHOSPHATASE 74 U/L (45-117); BUN 9 mg/dl (7-24); CHLORIDE 107 mmol/L (98-107); CREATININE 0.62 mg/dL (0.55-1.02); POTASSIUM 3.7 mmol/L (3.5-5.1); SGOT/AST 11 IU/L (3-35); SGPT/ALT 18 U/L (12-78); SODIUM 139 mmol/L (136-145); TOTAL PROTEIN 6.7 gm/dL (6.4-8.2)
[2020-09-14 21:14] LABS: BILIRUBIN Negative (Negative); BLOOD Negative (Negative); CLARITY Clear (Clear); COLOR Yellow (Yellow); GLUCOSE Negative (Negative); KETONE Negative (Negative); LEUKO ESTERASE Negative (Negative); NITRITE Negative (Negative); UROBILINOGEN 0.2 E.U./dl (0.0-1.0)
[2020-09-14 21:14] LABS: ACETAMINOPHEN (TYLENOL) < 5.0 ug/ml (10-30); ETHYL ALCOHOL < 3.0 mg/dl (<3)
[2020-09-14 21:22] LABS: URINE AMPHETAMINES < 1000 (1000ng/ml); URINE BARBITURATES < 200 (200ng/ml); URINE BENZODIAZEPINES < 200 (200ng/ml); URINE CANNABINOIDS (THC) < 50 (50ng/ml); URINE COCAINE > 300 (300ng/ml); URINE METHADONE < 300 (300ng/ml); URINE OPIATES < 300 (300ng/ml)
[2020-09-14 21:23] LABS: URINE PHENCYCLIDINE < 25 (25ng/ml)
[2020-09-14 21:33] LABS: BACTERIA 1+; EPITHELIAL CELLS 0-2; RBC 0-2 rbc/hpf (0-2)
== END 2020-09-14 23:59 | disposition home or self-care (01) ==
LOC: ED 19:28
PROVIDERS: Emergency Medicine
DX: T74.11XA Adult physical abuse, confirmed, initial encounter (principal); S00.83XA Contusion of other part of head, initial encounter; F43.21 Adjustment disorder with depressed mood; F14.10 Cocaine abuse, uncomplicated; F31.9 Bipolar disorder, unspecified; K21.9 Gastro-esophageal reflux disease without esophagitis; F41.9 Anxiety disorder, unspecified; Z88.8 Allergy status to other drugs, medicaments and biological substances; Z91.041 Radiographic dye allergy status; Z79.899 Other long term (current) drug therapy; Z79.2 Long term (current) use of antibiotics; J45.909 Unspecified asthma, uncomplicated; E78.00 Pure hypercholesterolemia, unspecified; Z98.51 Tubal ligation status; Z90.49 Acquired absence of other specified parts of digestive tract; Z98.890 Other specified postprocedural states; Z20.822 Contact with and (suspected) exposure to COVID-19; Y08.89XA Assault by other specified means, initial encounter; Y93.89 Activity, other specified; Y92.89 Other specified places as the place of occurrence of the external cause; Y99.8 Other external cause status